=== PATIENT | female | born 1965 | race Caucasian/White ===

== ENCOUNTER → 2019-01-18 | Outpatient (CLI) | payer OTHER ==
[~2019-01-18] MED LIST: ASCO10004 PO; B6/F1TAB PO; CHOL2000 PO; CYAN1TAB29 PO; LEVO88TA4 PO
== END | disposition home or self-care (01) ==
LOC: CFH 09:20
PROVIDERS: ATTEND Internal Medicine Hematology & Oncology
DX: Z12.31 Encounter for screening mammogram for malignant neoplasm of breast (principal); N64.89 Other specified disorders of breast; F17.200 Nicotine dependence, unspecified, uncomplicated; Z85.3 Personal history of malignant neoplasm of breast; Z82.5 Family history of asthma and other chronic lower respiratory diseases
CPT/HCPCS: 77067